=== PATIENT | female | born 1975 ===

== ENCOUNTER 2018-11-05 12:38 | Emergency (ER) | payer MEDICAID, OTHER ==
[~2018-11-05] VITALS: Ht 180.3 cm; Wt 149.7 kg
[2018-11-05 13:16] VITALS: BP 164/97
== END 2018-11-05 13:47 | disposition left against medical advice (07) ==
LOC: ER 12:38
DX: J06.9 Acute upper respiratory infection, unspecified (principal); Z53.29 Procedure and treatment not carried out because of patient's decision for other reasons